=== PATIENT | female | born 1950 | race Caucasian/White ===

== ENCOUNTER 2022-06-24 16:48 | Inpatient (IN) | payer OTHER ==
[2022-06-24 16:52] VITALS: BMI 35.5
[2022-06-24 18:28] LABS: BASO % 0.4 % (0-2.0); EOS % 0.6 % (0-4.5); HEMATOCRIT 37.4 % (32.4-45.2); HEMOGLOBIN 12.1 GM/dL (10.7-15.3); LYMPH % 10.7 % (8-40); MCH 29.9 pg (25.7-33.7); MCHC 32.4 g/dl (32.0-36.0); MEAN CELL VOLUME 92.2 fl (80-96); MEAN PLT VOLUME 9.4 fl (7.5-11.1); MONO % 6.5 % (3.8-10.2); NEUT % 81.8 % (42.8-82.8); PLATELET COUNT 267 10^3/uL (134-434); RBC 4.05 M/mm3 (3.60-5.2); RDW 13.9 % (11.6-15.6)
[2022-06-24 18:35] LABS: INR 0.99 (0.83-1.09); PROTHROMBIN TIME (PATIENT) 11.5 SEC (9.7-13.0)
[2022-06-24 18:36] LABS: ACTIVATED PTT 33.8 SECONDS (25.2-36.5)
[2022-06-24 18:52] LABS: CALCIUM 9.5 mg/dL (8.5-10.1)
[2022-06-24 18:54] LABS: ALBUMIN 3.2 g/dl (3.4-5.0); BLOOD UREA NITROGEN 18.1 mg/dL (7-18)
[2022-06-24 18:56] LABS: CREATININE 0.6 mg/dL (0.55-1.3)
[2022-06-24 18:57] LABS: BILIRUBIN,TOTAL 0.4 mg/dL (0.2-1)
[2022-06-25] MEDS ORDERED: SODIUM CHLORIDE 0.45% 1,000 ML IV SCH (02:45)
[2022-06-25 06:39] LABS: BASO % 0.2 % (0-2.0); EOS % 0.3 % (0-4.5); HEMATOCRIT 34.9 % (32.4-45.2); HEMOGLOBIN 11.7 GM/dL (10.7-15.3); LYMPH % 15.9 % (8-40); MCH 31.6 pg (25.7-33.7); MCHC 33.5 g/dl (32.0-36.0); MEAN CELL VOLUME 94.2 fl (80-96); MEAN PLT VOLUME 9.3 fl (7.5-11.1); MONO % 6.2 % (3.8-10.2); NEUT % 77.4 % (42.8-82.8); PLATELET COUNT 262 10^3/uL (134-434); RBC 3.71 M/mm3 (3.60-5.2); RDW 13.6 % (11.6-15.6); WHITE BLOOD COUNT 9.6 K/mm3 (4.0-10.0)
[2022-06-25 06:57] LABS: BLOOD UREA NITROGEN 15.5 mg/dL (7-18)
[2022-06-25 06:59] LABS: ALBUMIN 3.1 g/dl (3.4-5.0); CALCIUM 8.9 mg/dL (8.5-10.1); MAGNESIUM 1.8 mg/dL (1.8-2.4)
[2022-06-25 07:01] LABS: CREATININE 0.6 mg/dL (0.55-1.3)
[2022-06-25 07:03] LABS: BILIRUBIN,TOTAL 0.4 mg/dL (0.2-1); PHOSPHOROUS 3.2 mg/dL (2.5-4.9); TOT PROT 6.4 g/dl (6.4-8.2)
[2022-06-25] MEDS ORDERED: ENALAPRIL MALEATE 5 MG TABLET ONE (07:56)
[2022-06-25] MEDS: ENALAPRIL MALEATE 10 MG TABLET PO SCH (09:10)
[2022-06-25 10:30] VITALS: RESP 18
[2022-06-25 11:43] LABS: EPI CELLS 2 /uL (0-25.1); HYALINE CASTS 0 /uL (0-3.1); URINE APPEARANCE TURBID; URINE BACTERIA 3718 /uL (0-1359); URINE BILIRUBIN NEGATIVE (NEGATIVE); URINE COLOR RED; URINE GLUCOSE (UA) NEGATIVE (NEGATIVE); URINE KETONE NEGATIVE (NEGATIVE); URINE LEUK ESTERASE 1+ (NEGATIVE); URINE NITRITE POSITIVE (NEGATIVE); URINE PROTEIN 3+ (NEGATIVE); URINE RBC 174 /uL (0-23.9); URINE WBC 4 /uL (0-25.8)
[2022-06-25] MEDS ORDERED: levETIRAcetam 250 MG TABLET PO SCH (13:15)
[2022-06-25] MEDS ORDERED: levETIRAcetam 500 MG TABLET (FP) PO SCH (15:36)
[2022-06-25] MEDS: CEFTRIAXONE 1 GM in DEXTROSE 5%-WATER - 50 ML IVPB SCH (16:45)
[2022-06-25] MEDS ORDERED: cefTRIAXone SODIUM 1 GM VIAL ONE (16:47)
[2022-06-26 08:08] LABS: CARCINOEMBRYONIC ANTIGEN 12.3 ng/mL (0.0-4.7)
[2022-06-26 08:36] LABS: BASO % 0.4 % (0-2.0); EOS % 0.9 % (0-4.5); HEMATOCRIT 30.5 % (32.4-45.2); HEMOGLOBIN 10.2 GM/dL (10.7-15.3); LYMPH % 17.9 % (8-40); MCH 31.4 pg (25.7-33.7); MCHC 33.6 g/dl (32.0-36.0); MEAN CELL VOLUME 93.6 fl (80-96); MEAN PLT VOLUME 9.2 fl (7.5-11.1); MONO % 7.9 % (3.8-10.2); NEUT % 72.9 % (42.8-82.8); PLATELET COUNT 246 10^3/uL (134-434); RBC 3.26 M/mm3 (3.60-5.2); RDW 13.8 % (11.6-15.6); WHITE BLOOD COUNT 8.6 K/mm3 (4.0-10.0)
[2022-06-26 08:58] LABS: CALCIUM 8.6 mg/dL (8.5-10.1)
[2022-06-26 08:59] LABS: ALBUMIN 2.8 g/dl (3.4-5.0); BLOOD UREA NITROGEN 16.8 mg/dL (7-18)
[2022-06-26 09:02] LABS: CREATININE 0.8 mg/dL (0.55-1.3)
[2022-06-26 09:03] LABS: BILIRUBIN,TOTAL 0.6 mg/dL (0.2-1); TOT PROT 5.8 g/dl (6.4-8.2)
[2022-06-26] MEDS: CEFTRIAXONE 1 GM in DEXTROSE 5%-WATER - 50 ML IVPB SCH (10:27)
[2022-06-26] MEDS: ENALAPRIL MALEATE 10 MG TABLET PO SCH (11:09)
[2022-06-26 18:53] VITALS: BP 139/73; PULSE 98; TEMP 98.1
== END 2022-06-26 13:59 | disposition home or self-care (01) | DRG 760 ==
LOC: JER 16:48 → JERBED 06-25 00:18 → OBSVTOIN 06-25 02:15 → J5S 06-25 18:08
PROVIDERS: ADMIT Internal Medicine; ATTEND Nurse Practitioner Acute Care
DX: N93.9 Abnormal uterine and vaginal bleeding, unspecified (principal); G81.94 Hemiplegia, unspecified affecting left nondominant side; N39.0 Urinary tract infection, site not specified; N88.8 Other specified noninflammatory disorders of cervix uteri; I10 Essential (primary) hypertension; E66.9 Obesity, unspecified; Z68.35 Body mass index [BMI] 35.0-35.9, adult
CPT/HCPCS: 0241U-QW; 36415; 76830-TC; 80053; 81003; 82378; 83735; 84100; 85025; 85610; 85730; 86304; 86850; 86900; 86901; 87086; 87186; 88305-TC; 88341-TC; 97116-GP; 97161-GP; 99285-25; G0378

== ENCOUNTER 2023-08-18 16:53 | Inpatient (IN) | payer OTHER ==
[2023-08-18 17:42] LABS: EPI CELLS >36 /uL (0-25.1); HYALINE CASTS 5 /uL (0-3.1); URINE APPEARANCE TURBID; URINE BACTERIA 508 /uL (0-1359); URINE BILIRUBIN NEGATIVE (NEGATIVE); URINE COLOR YELLOW; URINE GLUCOSE (UA) NEGATIVE (NEGATIVE); URINE KETONE TRACE (NEGATIVE); URINE LEUK ESTERASE 1+ (NEGATIVE); URINE NITRITE NEGATIVE (NEGATIVE); URINE PROTEIN 2+ (NEGATIVE); URINE UROBILINOGEN 0.2 mg/dL (0.2-1.0); URINE WBC 221 /uL (0-25.8)
[2023-08-18 18:03] LABS: VENOUS BASE EXCESS -2.2 mmol/L (-2-2); VENOUS O2 SATURATION 70.9 % (70-80); VENOUS PH 7.404 (7.310-7.410)
[2023-08-18 18:09] LABS: BASO % 0.2 % (0-2.0); HEMATOCRIT 37.8 % (32.4-45.2); HEMOGLOBIN 12.3 GM/dL (10.7-15.3); LYMPH % 2.3 % (8-40); MCH 30.1 pg (25.7-33.7); MCHC 32.6 g/dl (32.0-36.0); MEAN CELL VOLUME 92.3 fl (80-96); MEAN PLT VOLUME 8.4 fl (7.5-11.1); MONO % 5.1 % (3.8-10.2); NEUT % 92.4 % (42.8-82.8); PLATELET COUNT 264 10^3/uL (134-434); WHITE BLOOD COUNT 15.2 K/mm3 (4.0-10.0)
[2023-08-18] MEDS ORDERED: ACETAMINOPHEN INJECTION 100 ML IVPB ONE (18:10)
[2023-08-18] MEDS: ACETAMINOPHEN 1000 MG/100 ML BAG IVPB ONE (18:15)
[2023-08-18 18:17] LABS: INR 1.11 (0.83-1.09); PROTHROMBIN TIME (PATIENT) 12.5 SEC (9.7-13.0)
[2023-08-18 18:20] LABS: ACTIVATED PTT 28.6 SECONDS (25.2-36.5)
[2023-08-18 18:30] LABS: URINE RBC 89.1 /uL (0-23.9)
[2023-08-18 18:36] LABS: POTASSIUM 3.4 mmol/L (3.5-5.1)
[2023-08-18 18:37] LABS: CALCIUM 9.1 mg/dL (8.5-10.1)
[2023-08-18 18:38] LABS: BLOOD UREA NITROGEN 21.1 mg/dL (7-18)
[2023-08-18 18:40] LABS: CREATININE 0.7 mg/dL (0.55-1.3)
[2023-08-18 18:43] LABS: BILIRUBIN,TOTAL 0.5 mg/dL (0.2-1); TOT PROT 6.7 g/dl (6.4-8.2)
[2023-08-18 18:56] LABS: ANISOCYTOSIS 1+; MACROCYTOSIS 0
[2023-08-18] MEDS ORDERED: CEFTRIAXONE 1 GM/50 ML BAG ONE (19:12)
[2023-08-18] MEDS: CEFTRIAXONE 1 GM in DEXTROSE 5%-WATER - 100 ML IVPB ONE (19:13)
[2023-08-18] MEDS: SODIUM CHLORIDE 0.9% 500 ML INFUS.BAG IV ONE (21:45)
[2023-08-18 22:28] LABS: POTASSIUM 3.2 mmol/L (3.5-5.1)
[2023-08-18 22:29] LABS: CALCIUM 8.7 mg/dL (8.5-10.1)
[2023-08-18 22:33] LABS: CREATININE 0.7 mg/dL (0.55-1.3)
[2023-08-19] MEDS: NYSTATIN POWDER 100,000 UNITS/GM - 15 GM TOPICAL POWDER TP SCH (00:05)
[2023-08-19] MEDS: LACTATED RINGERS SOLUTION 1,000 ML/1,000 ML INFUS.BAG IV SCH (01:12)
[2023-08-19] MEDS ORDERED: KCL 10 MEQ IVPB 10 MEQ/100 ML INFUS.BAG IVPB SCH (06:15)
[2023-08-19] MEDS: POTASSIUM CHLORIDE TABS 20 MEQ TABLET.ER (FP) PO ONE (06:49)
[2023-08-19 07:24] LABS: HEMOGLOBIN 11.3 GM/dL (10.7-15.3); MCH 30.9 pg (25.7-33.7); MCHC 33.2 g/dl (32.0-36.0); MEAN PLT VOLUME 8.6 fl (7.5-11.1); PLATELET COUNT 229 10^3/uL (134-434); RBC 3.66 M/mm3 (3.60-5.2); RDW 15.2 % (11.6-15.6); WHITE BLOOD COUNT 9.2 K/mm3 (4.0-10.0)
[2023-08-19 07:35] LABS: POTASSIUM 3.5 mmol/L (3.5-5.1)
[2023-08-19 07:42] LABS: CALCIUM 8.7 mg/dL (8.5-10.1)
[2023-08-19 07:43] LABS: BLOOD UREA NITROGEN 20.3 mg/dL (7-18)
[2023-08-19 07:46] LABS: CREATININE 0.6 mg/dL (0.55-1.3)
[2023-08-19] MEDS: levETIRAcetam 500 MG/5 ML INJECTION VIAL IVPB SCH (09:17)
[2023-08-19] MEDS: LABETALOL HCL 5 MG/1 ML (100MG/20 ML VIAL) IVPUSH ONE (09:17)
[2023-08-19] MEDS: ACETAMINOPHEN 500 MG TABLET (FP) PO PRN (09:20)
[2023-08-19] MEDS: CEFTRIAXONE 1 GM in DEXTROSE 5%-WATER - 50 ML IVPB SCH (18:13)
[2023-08-19] MEDS ORDERED: levETIRAcetam XR 750 MG TAB PO SCH (22:00)
[2023-08-19] MEDS: levETIRAcetam 500 MG/5 ML ORAL SOLUTION (UNIT-DOSE CUPS) PO SCH (23:49)
[2023-08-20 07:20] LABS: BASO % 0.2 % (0-2.0); EOS % 1.6 % (0-4.5); HEMOGLOBIN 11.4 GM/dL (10.7-15.3); LYMPH % 8.9 % (8-40); MCH 30.4 pg (25.7-33.7); MCHC 32.5 g/dl (32.0-36.0); MEAN CELL VOLUME 93.3 fl (80-96); MEAN PLT VOLUME 8.7 fl (7.5-11.1); MONO % 7.7 % (3.8-10.2); NEUT % 81.6 % (42.8-82.8); PLATELET COUNT 227 10^3/uL (134-434); RBC 3.75 M/mm3 (3.60-5.2); RDW 15.4 % (11.6-15.6); WHITE BLOOD COUNT 5.7 K/mm3 (4.0-10.0)
[2023-08-20 07:36] LABS: POTASSIUM 3.8 mmol/L (3.5-5.1)
[2023-08-20 07:38] LABS: ALBUMIN 2.5 g/dl (3.4-5.0); BLOOD UREA NITROGEN 14.7 mg/dL (7-18); CALCIUM 8.8 mg/dL (8.5-10.1); MAGNESIUM 2.2 mg/dL (1.8-2.4)
[2023-08-20 07:41] LABS: CREATININE 0.6 mg/dL (0.55-1.3)
[2023-08-20 07:43] LABS: BILIRUBIN,TOTAL 0.3 mg/dL (0.2-1); TOT PROT 6.1 g/dl (6.4-8.2)
[2023-08-20] MEDS: ENALAPRIL MALEATE 10 MG TABLET PO SCH (09:49)
[2023-08-20] MEDS ORDERED: PATIENT'S OWN MEDICATION (NON-FORMULARY) (Levetiracetam [Levetiracetam] 750 MG Tablet) PO SCH (10:00)
[2023-08-20] MEDS: AMINO ACIDS/PROTEIN HYDROLYS 30 ML LIQUID.PKT PO SCH (16:57)
[2023-08-21 07:47] LABS: HEMATOCRIT 32.5 % (32.4-45.2); HEMOGLOBIN 10.9 GM/dL (10.7-15.3); MCH 31.4 pg (25.7-33.7); MCHC 33.7 g/dl (32.0-36.0); MEAN CELL VOLUME 93.1 fl (80-96); PLATELET COUNT 215 10^3/uL (134-434); RBC 3.49 M/mm3 (3.60-5.2); WHITE BLOOD COUNT 4.6 K/mm3 (4.0-10.0)
[2023-08-21 07:58] LABS: POTASSIUM 4.2 mmol/L (3.5-5.1)
[2023-08-21 08:03] LABS: CALCIUM 8.5 mg/dL (8.5-10.1)
[2023-08-21 08:04] LABS: BLOOD UREA NITROGEN 15.8 mg/dL (7-18)
[2023-08-21 08:07] LABS: CREATININE 0.6 mg/dL (0.55-1.3)
[2023-08-21] MEDS: hydrALAZINE HCL 10 MG TABLET PO PRN (11:53)
[2023-08-21] MEDS: metoPROLOL SUCCINATE 25 MG TAB.SR.24H (FP) PO SCH (11:53)
[2023-08-21] MEDS: hydrALAZINE HCL 50 MG TABLET (FP) PO ONE (14:46)
[2023-08-21] MEDS: LACTATED RINGERS SOLUTION 1,000 ML/1,000 ML INFUS.BAG IV SCH (18:34)
[2023-08-21] MEDS: METOPROLOL TARTRATE 50 MG TABLET (FP) PO SCH (21:56)
[2023-08-22 07:05] LABS: BASO % 0.8 % (0-2.0); EOS % 3.3 % (0-4.5); HEMATOCRIT 33.3 % (32.4-45.2); HEMOGLOBIN 11.3 GM/dL (10.7-15.3); LYMPH % 10.5 % (8-40); MCH 31.5 pg (25.7-33.7); MCHC 33.9 g/dl (32.0-36.0); MEAN CELL VOLUME 92.8 fl (80-96); MEAN PLT VOLUME 8.8 fl (7.5-11.1); MONO % 8.1 % (3.8-10.2); NEUT % 77.3 % (42.8-82.8); PLATELET COUNT 221 10^3/uL (134-434); RBC 3.58 M/mm3 (3.60-5.2); RDW 15.3 % (11.6-15.6); WHITE BLOOD COUNT 4.6 K/mm3 (4.0-10.0)
[2023-08-22 07:27] LABS: POTASSIUM 4.1 mmol/L (3.5-5.1)
[2023-08-22 07:31] LABS: CALCIUM 8.5 mg/dL (8.5-10.1)
[2023-08-22 07:32] LABS: BLOOD UREA NITROGEN 14.6 mg/dL (7-18)
[2023-08-22 07:35] LABS: CREATININE 0.5 mg/dL (0.55-1.3)
[2023-08-22] MEDS: ACETAMINOPHEN 500 MG TABLET (FP) PO PRN (18:15)
[2023-08-22] MEDS: NYSTATIN POWDER 100,000 UNITS/GM - 15 GM TOPICAL POWDER TP SCH (21:46)
[2023-08-23 08:00] LABS: BASO % 0.7 % (0-2.0); EOS % 2.7 % (0-4.5); HEMATOCRIT 33.3 % (32.4-45.2); HEMOGLOBIN 11.2 GM/dL (10.7-15.3); LYMPH % 8.8 % (8-40); MCH 31.1 pg (25.7-33.7); MCHC 33.6 g/dl (32.0-36.0); MEAN CELL VOLUME 92.6 fl (80-96); MEAN PLT VOLUME 8.4 fl (7.5-11.1); MONO % 9.3 % (3.8-10.2); NEUT % 78.5 % (42.8-82.8); PLATELET COUNT 233 10^3/uL (134-434); RDW 15.2 % (11.6-15.6); WHITE BLOOD COUNT 5.7 K/mm3 (4.0-10.0)
[2023-08-23 08:03] LABS: POTASSIUM 4.1 mmol/L (3.5-5.1)
[2023-08-23 08:05] LABS: BLOOD UREA NITROGEN 17.4 mg/dL (7-18); CALCIUM 8.6 mg/dL (8.5-10.1)
[2023-08-23 08:08] LABS: CREATININE 0.5 mg/dL (0.55-1.3)
[2023-08-23] MEDS: DOXYCYCLINE HYCLATE 100 MG CAPSULE PO SCH (09:13)
[2023-08-23] MEDS: hydrALAZINE HCL 25 MG TABLET (FP) PO SCH (09:14)
[2023-08-23] MEDS: ENALAPRIL MALEATE 10 MG TABLET PO SCH (09:14)
[2023-08-23] MEDS: amLODIPine BESYLATE 5 MG TABLET (FP) PO SCH (09:14)
[2023-08-23] MEDS: CEFTRIAXONE 1 GM in DEXTROSE 5%-WATER - 50 ML IVPB SCH (09:18)
[2023-08-23 09:33] LABS: ERYTHROCYTE SEDIMENTATION RATE 65 mm/hr (0-30)
[2023-08-23] MEDS: PIPERACILLIN/TAZOB 4.5 GM 4.5 GM in DEXTROSE 5%-WATER 100 ML IVPB SCH (14:42)
[2023-08-24 07:50] LABS: POTASSIUM 4.3 mmol/L (3.5-5.1)
[2023-08-24 07:55] LABS: BLOOD UREA NITROGEN 17.7 mg/dL (7-18); CALCIUM 8.7 mg/dL (8.5-10.1)
[2023-08-24 07:59] LABS: CREATININE 0.7 mg/dL (0.55-1.3)
[2023-08-24 08:01] LABS: BASO % 0.4 % (0-2.0); EOS % 2.6 % (0-4.5); HEMATOCRIT 34.5 % (32.4-45.2); HEMOGLOBIN 11.3 GM/dL (10.7-15.3); LYMPH % 5.8 % (8-40); MCH 30.7 pg (25.7-33.7); MCHC 32.8 g/dl (32.0-36.0); MEAN CELL VOLUME 93.4 fl (80-96); MEAN PLT VOLUME 9.1 fl (7.5-11.1); MONO % 8.2 % (3.8-10.2); PLATELET COUNT 239 10^3/uL (134-434); RDW 15.2 % (11.6-15.6); WHITE BLOOD COUNT 6.4 K/mm3 (4.0-10.0)
[2023-08-24] MEDS: levETIRAcetam XR 750 MG TAB PO SCH (09:39)
[2023-08-24] MEDS: amLODIPine BESYLATE 10 MG TABLET (FP) PO SCH (09:39)
[2023-08-24 23:33] VITALS: BMI 41.5
[2023-08-25 08:06] LABS: HEMATOCRIT 32.5 % (32.4-45.2); HEMOGLOBIN 10.9 GM/dL (10.7-15.3); MCH 31.2 pg (25.7-33.7); MCHC 33.7 g/dl (32.0-36.0); MEAN CELL VOLUME 92.6 fl (80-96); MEAN PLT VOLUME 8.7 fl (7.5-11.1); PLATELET COUNT 242 10^3/uL (134-434); RDW 15.4 % (11.6-15.6)
[2023-08-25 08:08] LABS: POTASSIUM 3.9 mmol/L (3.5-5.1)
[2023-08-25 08:09] LABS: CALCIUM 8.6 mg/dL (8.5-10.1)
[2023-08-25 08:10] LABS: BLOOD UREA NITROGEN 15.6 mg/dL (7-18)
[2023-08-25 08:13] LABS: CREATININE 0.5 mg/dL (0.55-1.3)
[2023-08-25] MEDS: ENALAPRIL MALEATE 10 MG TABLET PO SCH (10:04)
[2023-08-25] MEDS: MULTIVITAMINS THER W-MINERALS COMBO TABLET (FP) PO SCH (10:05)
[2023-08-25] MEDS: ASCORBIC ACID 250 MG TABLET (FP) PO SCH (10:05)
[2023-08-26 07:21] LABS: HEMATOCRIT 34.5 % (32.4-45.2); HEMOGLOBIN 11.7 GM/dL (10.7-15.3); MCHC 33.8 g/dl (32.0-36.0); MEAN CELL VOLUME 91.9 fl (80-96); MEAN PLT VOLUME 8.7 fl (7.5-11.1); PLATELET COUNT 258 10^3/uL (134-434); RBC 3.76 M/mm3 (3.60-5.2); RDW 15.8 % (11.6-15.6); WHITE BLOOD COUNT 5.4 K/mm3 (4.0-10.0)
[2023-08-26 07:44] LABS: POTASSIUM 3.9 mmol/L (3.5-5.1)
[2023-08-26 07:55] LABS: CALCIUM 8.9 mg/dL (8.5-10.1)
[2023-08-26 07:57] LABS: CREATININE 0.6 mg/dL (0.55-1.3)
[2023-08-26 09:39] LABS: ERYTHROCYTE SEDIMENTATION RATE 57 mm/hr (0-30)
[2023-08-26] MEDS: hydrALAZINE HCL 50 MG TABLET (FP) PO SCH (21:53)
[2023-08-27 07:03] LABS: BASO % 0.4 % (0-2.0); EOS % 2.9 % (0-4.5); HEMATOCRIT 33.4 % (32.4-45.2); HEMOGLOBIN 11.3 GM/dL (10.7-15.3); LYMPH % 9.7 % (8-40); MCHC 33.7 g/dl (32.0-36.0); MEAN PLT VOLUME 8.5 fl (7.5-11.1); MONO % 7.8 % (3.8-10.2); NEUT % 79.2 % (42.8-82.8); PLATELET COUNT 256 10^3/uL (134-434); RBC 3.63 M/mm3 (3.60-5.2); RDW 15.7 % (11.6-15.6); WHITE BLOOD COUNT 4.8 K/mm3 (4.0-10.0)
[2023-08-27 07:20] LABS: POTASSIUM 3.8 mmol/L (3.5-5.1)
[2023-08-27 07:24] LABS: CALCIUM 8.7 mg/dL (8.5-10.1)
[2023-08-27 07:25] LABS: BLOOD UREA NITROGEN 20.2 mg/dL (7-18)
[2023-08-27 07:28] LABS: CREATININE 0.6 mg/dL (0.55-1.3)
[2023-08-27 18:34] VITALS: TEMP 97.9
[2023-08-27 20:22] VITALS: BP 135/73; PULSE 78; RESP 20
== END 2023-08-27 20:35 | disposition short-term general hospital (02) | DRG 86 ==
LOC: JER 16:53 → JERBED 21:13 → JICU 22:18 → J4W 08-21 17:30
PROVIDERS: ADMIT Internal Medicine Pulmonary Disease; ATTEND Internal Medicine
DX: S06.340A Traumatic hemorrhage of right cerebrum without loss of consciousness, initial encounter (principal); G81.94 Hemiplegia, unspecified affecting left nondominant side; T81.30XA Disruption of wound, unspecified, initial encounter; M62.82 Rhabdomyolysis; N39.0 Urinary tract infection, site not specified; Z68.41 Body mass index [BMI] 40.0-44.9, adult; L98.498 Non-pressure chronic ulcer of skin of other sites with other specified severity; E66.01 Morbid (severe) obesity due to excess calories; D72.829 Elevated white blood cell count, unspecified; H02.401 Unspecified ptosis of right eyelid; I10 Essential (primary) hypertension; G40.909 Epilepsy, unspecified, not intractable, without status epilepticus; S01.80XA Unspecified open wound of other part of head, initial encounter; B95.4 Other streptococcus as the cause of diseases classified elsewhere; B95.7 Other staphylococcus as the cause of diseases classified elsewhere; W07.XXXA Fall from chair, initial encounter; Y92.098 Other place in other non-institutional residence as the place of occurrence of the external cause; Y99.9 Unspecified external cause status; Z85.41 Personal history of malignant neoplasm of cervix uteri; Y83.8 Other surgical procedures as the cause of abnormal reaction of the patient, or of later complication, without mention of misadventure at the time of the procedure
CPT/HCPCS: 0241U-QW; 36415; 70450-TC; 71045-TC-FY; 80048; 80053; 81003; 82550; 82553; 82803; 83605; 83735; 84100; 85025; 85027; 85610; 85651; 85730; 86140; 86850; 86900; 86901; 87040; 87070; 87076; 87205; 87635; 93005; 93010; 93306-TC; 97116-GP; 97161-GP; 99285-25; J0131

== ENCOUNTER 2024-03-30 16:21 | Observation (INO) | payer OTHER ==
[2024-03-30 18:28] LABS: BASO % 0.2 % (0-2.0); EOS % 0.5 % (0-4.5); HEMATOCRIT 38.8 % (32.4-45.2); HEMOGLOBIN 12.9 GM/dL (10.7-15.3); LYMPH % 4.9 % (8-40); MCH 30.4 pg (25.7-33.7); MCHC 33.2 g/dl (32.0-36.0); MEAN CELL VOLUME 91.5 fl (80-96); MEAN PLT VOLUME 8.3 fl (7.5-11.1); MONO % 6.8 % (3.8-10.2); NEUT % 87.6 % (42.8-82.8); PLATELET COUNT 275 10^3/uL (134-434); RBC 4.24 M/mm3 (3.60-5.2); RDW 15.1 % (11.6-15.6); WHITE BLOOD COUNT 9.8 K/mm3 (4.0-10.0)
[2024-03-30 19:05] LABS: POTASSIUM 3.9 mmol/L (3.5-5.1)
[2024-03-30 19:07] LABS: ALBUMIN 3.1 g/dl (3.4-5.0); BLOOD UREA NITROGEN 14.2 mg/dL (7-18); CALCIUM 9.4 mg/dL (8.5-10.1)
[2024-03-30 19:10] LABS: CREATININE 0.8 mg/dL (0.55-1.3)
[2024-03-30 19:12] LABS: BILIRUBIN,TOTAL 0.5 mg/dL (0.2-1)
[2024-03-30] MEDS: SODIUM CHLORIDE 0.9% 500 ML INFUS.BAG IV ONE (20:27)
[2024-03-31 01:32] VITALS: BMI 39.4
[2024-03-31] MEDS: levETIRAcetam 500 MG TABLET (FP) PO ONE (03:38)
[2024-03-31 09:21] LABS: BASO % 0.4 % (0-2.0); HEMATOCRIT 32.6 % (32.4-45.2); HEMOGLOBIN 11.1 GM/dL (10.7-15.3); LYMPH % 13.7 % (8-40); MCH 31.4 pg (25.7-33.7); MCHC 34.1 g/dl (32.0-36.0); MEAN PLT VOLUME 8.5 fl (7.5-11.1); MONO % 9.2 % (3.8-10.2); NEUT % 74.7 % (42.8-82.8); PLATELET COUNT 218 10^3/uL (134-434); POTASSIUM 3.7 mmol/L (3.5-5.1); RBC 3.54 M/mm3 (3.60-5.2); WHITE BLOOD COUNT 4.9 K/mm3 (4.0-10.0)
[2024-03-31 09:29] LABS: CREATININE 0.7 mg/dL (0.55-1.3); PHOSPHOROUS 3.7 mg/dL (2.5-4.9)
[2024-03-31 09:30] LABS: ALBUMIN 2.7 g/dl (3.4-5.0); CALCIUM 8.7 mg/dL (8.5-10.1)
[2024-03-31 09:31] LABS: BILIRUBIN,TOTAL 0.4 mg/dL (0.2-1); BLOOD UREA NITROGEN 18.6 mg/dL (7-18); MAGNESIUM 1.8 mg/dL (1.8-2.4); TOT PROT 5.9 g/dl (6.4-8.2)
[2024-03-31] MEDS ORDERED: HYDROCHLOROTHIAZIDE 12.5 MG CAPSULE (FP) PO SCH (10:00)
[2024-03-31] MEDS: CLOTRIMAZOLE/BETAMET DIPROP 15 GM TUBE TP SCH (10:14)
[2024-03-31] MEDS: ENOXAPARIN NA (PORCINE) 40 MG/0.4 ML DISP.SYRIN SQ SCH (10:14)
[2024-03-31] MEDS: NYSTATIN POWDER 100,000 UNITS/GM - 15 GM TOPICAL POWDER TP SCH (11:20)
[2024-03-31] MEDS: VITAMINS A AND D TOPICAL OINTMENT TP SCH (11:21)
[2024-04-01] MEDS ORDERED: levETIRAcetam 500 MG TABLET (FP) PO SCH (10:00)
[2024-04-01] MEDS: levETIRAcetam XR 750 MG TAB PO SCH (10:03)
[2024-04-01] MEDS: HYDROCHLOROTHIAZIDE 12.5 MG CAPSULE (FP) PO SCH (10:03)
[2024-04-01] MEDS: ACETAMINOPHEN 325 MG TABLET (FP) PO ONE (12:56)
[2024-04-01] MEDS: SODIUM CHLORIDE 1,000 ML IV SCH (13:52)
[2024-04-01] MEDS: LOPERAMIDE HCL 2 MG CAPSULE PO ONE (13:52)
[2024-04-01 15:12] LABS: BASO % 0.6 % (0-2.0); EOS % 2.8 % (0-4.5); HEMATOCRIT 35.8 % (32.4-45.2); HEMOGLOBIN 12.1 GM/dL (10.7-15.3); LYMPH % 11.7 % (8-40); MCH 31.4 pg (25.7-33.7); MCHC 33.7 g/dl (32.0-36.0); MEAN CELL VOLUME 93.3 fl (80-96); MEAN PLT VOLUME 8.9 fl (7.5-11.1); MONO % 7.6 % (3.8-10.2); NEUT % 77.3 % (42.8-82.8); PLATELET COUNT 278 10^3/uL (134-434); RBC 3.84 M/mm3 (3.60-5.2); RDW 15.1 % (11.6-15.6); WHITE BLOOD COUNT 6.4 K/mm3 (4.0-10.0)
[2024-04-01 15:47] LABS: POTASSIUM 3.6 mmol/L (3.5-5.1)
[2024-04-01 15:55] LABS: CALCIUM 9.1 mg/dL (8.5-10.1); CREATININE 1.2 mg/dL (0.55-1.3)
[2024-04-01 15:56] LABS: ALBUMIN 3.2 g/dl (3.4-5.0); BILIRUBIN,TOTAL 0.3 mg/dL (0.2-1); BLOOD UREA NITROGEN 32.3 mg/dL (7-18); MAGNESIUM 1.8 mg/dL (1.8-2.4)
[2024-04-01 15:57] LABS: TOT PROT 6.9 g/dl (6.4-8.2)
[2024-04-02 08:36] LABS: BASO % 0.6 % (0-2.0); EOS % 3.5 % (0-4.5); HEMATOCRIT 34.2 % (32.4-45.2); HEMOGLOBIN 11.2 GM/dL (10.7-15.3); LYMPH % 11.4 % (8-40); MCH 30.8 pg (25.7-33.7); MCHC 32.7 g/dl (32.0-36.0); MEAN PLT VOLUME 8.8 fl (7.5-11.1); MONO % 8.8 % (3.8-10.2); NEUT % 75.7 % (42.8-82.8); PLATELET COUNT 249 10^3/uL (134-434); RBC 3.64 M/mm3 (3.60-5.2); RDW 15.1 % (11.6-15.6); WHITE BLOOD COUNT 4.5 K/mm3 (4.0-10.0)
[2024-04-02 08:58] LABS: CALCIUM 8.8 mg/dL (8.5-10.1)
[2024-04-02 08:59] LABS: ALBUMIN 2.9 g/dl (3.4-5.0); BLOOD UREA NITROGEN 27.5 mg/dL (7-18); MAGNESIUM 1.8 mg/dL (1.8-2.4)
[2024-04-02 09:02] LABS: CREATININE 0.9 mg/dL (0.55-1.3)
[2024-04-02 09:04] LABS: TOT PROT 6.2 g/dl (6.4-8.2)
[2024-04-02 09:05] LABS: BILIRUBIN,TOTAL 0.3 mg/dL (0.2-1)
[2024-04-02] MEDS: ACETAMINOPHEN 325 MG TABLET (FP) PO ONE (09:06)
[2024-04-02 10:18] VITALS: BP 112/82; PULSE 74; RESP 17; TEMP 97.3
== END 2024-04-02 10:44 | disposition home or self-care (01) ==
LOC: JER 16:21 → JERBED 20:30 → J7W 03-31 00:07
PROVIDERS: ADMIT Internal Medicine
PROC: 3E0337Z Introduction of Electrolytic and Water Balance Substance into Peripheral Vein, Percutaneous Approach (ICD-10-PCS; principal; 2024-03-30)
DX: R53.1 Weakness (principal); R74.8 Abnormal levels of other serum enzymes; G40.909 Epilepsy, unspecified, not intractable, without status epilepticus; I10 Essential (primary) hypertension; C55 Malignant neoplasm of uterus, part unspecified; E66.01 Morbid (severe) obesity due to excess calories; Z68.39 Body mass index [BMI] 39.0-39.9, adult; W23.1XXA Caught, crushed, jammed, or pinched between stationary objects, initial encounter
CPT/HCPCS: 36415; 71045-TC-FY; 80053; 82550; 82553; 83735; 84100; 85025; 86140; 97116-GP; 97161-GP; 99285-25; G0378